=== PATIENT | male | born 1965 | race Caucasian/White ===

== ENCOUNTER 2017-12-04 16:47 | Emergency (ER) | payer BC ==
[2017-12-04] MEDS ORDERED: methylPREDNISolone SOD SUCC 125 MG/2 ML VIAL IVP ONE (17:02)
--- NOTE | 2017-12-04 17:04 | EDPHY ---
H & P Stated Complaint: burning in lungs /long flight friday/hx sarcoidosis Time Seen by Provider: 12/04/17 16:56 HPI/ROS: CHIEF COMPLAINT: Burning sensation in lungs HISTORY OF PRESENT ILLNESS: Patient is a 52-year-old man with a history of sarcoidosis who comes to the emergency department complaining of burning in his lungs and pain with deep inspiration. He states that this is similar to previous sarcoid flares in which case his steroid doses were increased for a few days. He is currently on 20 mg of prednisone daily. He has had the symptoms for about 3 days. He returned home from after [facility] 5 days ago. He presented to his primary today who was concerned about PE and sent him to the ER for evaluation. Patient denies leg pain or swelling. He does not smoke. No cardiac history. REVIEW OF SYSTEMS: Constitutional: denies: chills, fever, recent illness, recent injury EENTM: denies: blurred vision, double vision, nose congestion Respiratory: See HPI Cardiac: denies: chest pain, irregular heart rate, lightheadedness, palpitations Gastrointestinal/Abdominal: denies: abdominal pain, diarrhea, nausea, vomiting, blood streaked stools Genitourinary: denies: dysuria, frequency, hematuria, pain Musculoskeletal: denies: joint pain, muscle pain Skin: denies: lesions, rash, jaundice, bruising Neurological: denies: headache, numbness, paresthesia, tingling, dizziness, weakness Hematologic/Lymphatic: denies: blood clots, easy bleeding, easy bruising Immunologic/allergic: denies: HIV/AIDS, transplant EXAM: GENERAL: Well-appearing, well-nourished and in no acute distress. HEAD: Atraumatic, normocephalic. EYES: Pupils equal round and reactive to light, extraocular movements intact, sclera anicteric, conjunctiva are normal. ENT: TMs normal, nares patent, oropharynx clear without exudates. Moist mucous membranes. NECK: Normal range of motion, supple without lymphadenopathy or JVD. LUNGS: Breath sounds clear to auscultation bilaterally and equal. No wheezes rales or rhonchi. HEART: Regular rate and rhythm without murmurs, rubs or gallops. ABDOMEN: Soft, nontender, normoactive bowel sounds. No guarding, no rebound. No masses appreciated. BACK: No CVA tenderness, no spinal tenderness, step-offs or deformities EXTREMITIES: Normal range of motion, no pitting or edema. No clubbing or cyanosis. NEUROLOGICAL: Cranial nerves II through XII grossly intact. Normal speech, normal gait. 5/5 strength, normal movement in all extremities, normal sensation PSYCH: Normal mood, normal affect. SKIN: Warm, dry, normal turgor, no visible rashes or lesions. Source: Patient Exam Limitations: No limitations - Personal History Current Tetanus/Diphtheria Vaccine: Yes - Medical/Surgical History Hx Asthma: No Hx Chronic Respiratory Disease: Yes Hx Diabetes: No Hx Cardiac Disease: No Hx Renal Disease: No Hx Cirrhosis: No Hx Alcoholism: No Hx HIV/AIDS: No Hx Splenectomy or Spleen Trauma: No Other PMH: sarcoidosis - Family History Significant Family History: No pertinent family hx - Social History Smoking Status: Never smoked Alcohol Use: Sober Drug Use: None Constitutional: Initial Vital Signs Temperature (C) 36.5 C 12/04/17 16:52 Heart Rate 102 H 12/04/17 16:52 Respiratory Rate 20 12/04/17 16:52 Blood Pressure 119/93 H 12/04/17 16:52 O2 Sat (%) 96 12/04/17 16:52 O2 Delivery Mode Room Air Allergies/Adverse Reactions: sulfamethoxazole [From Bactrim] Allergy (Verified 12/04/17 16:51) trimethoprim [From Bactrim] Allergy (Verified 12/04/17 16:51) Home Medications: Medication Instructions Recorded Prednisone 12/04/17 predniSONE [Prednisone] 10 mg PO DAILY #14 tablet 12/04/17 Medical Decision Making - Diagnostics EKG Interpretation: An EKG obtained and was read and documented in trace view. Please see trace view for full reading and report. Sinus rhythm, no acute ischemic changes is T- wave inversion in lead 3. ED Course/Re-evaluation: Patient's D-dimer is negative. He is very relieved. He has received Solu- Medrol. We discussed is treating his steroids from 20 a day to 40 a day and then tapering. I will write him a prescription for several 10 mg prednisone and have him taper as discussed. He is happy with this plan and declines further workup or testing at this time. Differential Diagnosis: Partial list of the Differential diagnosis considered include but were not limited to; sarcoidosis exacerbation, asthma, PE and although unlikely based on the history and physical exam, I also considered arrhythmia, dissection, aneurysm. I discussed these differential diagnoses and the plan with the patient as well as the usual and expected course. The patient understands that the diagnosis is provisional and that in medicine we are not always correct and that further workup is often warranted. Usual and customary warnings were given. All of the patient's questions were answered. The patient was instructed to return to the emergency department should the symptoms at all worsen or return, otherwise to followup with the physician as we discussed. - Data Points Laboratory Results: Laboratory Results 12/04/17 17:04 12/04/17 17:04 12/04/17 12/04/17 12/04/17 17:04 17:04 17:04 WBC 6.62 10^3/uL 10^3/uL (3.80-9.50) RBC 5.35 10^6/uL 10^6/uL (4.40-6.38) Hgb 16.7 g/dL g/dL (13.7-17.5) Hct 48.4 % % (40.0-51.0) MCV 90.5 fL fL (81.5-99.8) MCH 31.2 pg pg (27.9-34.1) MCHC 34.5 g/dL g/dL (32.4-36.7) RDW 14.0 % % (11.5-15.2) Plt Count 234 10^3/uL 10^3/uL (150-400) MPV 10.7 fL fL (8.7-11.7) Neut % (Auto) 77.1 % H % (39.3-74.2) Lymph % (Auto) 13.4 % L % (15.0-45.0) Page % (Auto) 7.7 % % (4.5-13.0) Eos % (Auto) 0.2 % L % (0.6-7.6) Baso % (Auto) 0.5 % % (0.3-1.7) Nucleat RBC Rel Count 0.0 % % (0.0-0.2) Absolute Neuts (auto) 5.11 10^3/uL 10^3/uL (1.70-6.50) Absolute Lymphs (auto) 0.89 10^3/uL L 10^3/uL (1.00-3.00) Absolute Monos (auto) 0.51 10^3/uL 10^3/uL (0.30-0.80) Absolute Eos (auto) 0.01 10^3/uL L 10^3/uL (0.03-0.40) Absolute Basos (auto) 0.03 10^3/uL 10^3/uL (0.02-0.10) Absolute Nucleated RBC 0.00 10^3/uL 10^3/uL (0-0.01) Immature Gran % 1.1 % % (0.0-1.1) Immature Gran # 0.07 10^3/uL 10^3/uL (0.00-0.10) PT 13.7 SEC SEC (12.0-15.0) INR 1.03 (0.83-1.16) APTT 25.1 SEC SEC (23.0-38.0) D-Dimer < 0.27 ug/mLFEU ug/mLFEU (0.00-0.50) Sodium 141 mEq/L mEq/L (135-145) Potassium 4.5 mEq/L mEq/L (3.5-5.2) Chloride 102 mEq/L mEq/L (97-110) Carbon Dioxide 27 mEq/l mEq/l (22-31) Anion Gap 12 mEq/L mEq/L (8-16) BUN 23 mg/dL mg/dL (7-23) Creatinine 0.9 mg/dL mg/dL (0.7-1.3) Estimated GFR > 60 Glucose 116 mg/dL H mg/dL (70-100) Calcium 9.6 mg/dL mg/dL (8.5-10.4) Medications Given: Discontinued Medications Methylprednisolone Sodium Succinate (Solu-Medrol) 125 mg IVP EDNOW ONE Stop: 12/04/17 17:03 Last Admin: 12/04/17 17:18 Dose: 125 mg Departure - Departure Disposition: Home, Routine, Self-Care Clinical Impression: Sarcoidosis of lung Condition: Fair Instructions: Sarcoidosis (ED) Referrals: Jame Shirley DO [Primary Care Provider] - As per Instructions Prescriptions: predniSONE [Prednisone] 10 mg PO DAILY #14 tablet
--- NOTE | 2017-12-04 17:12 | CPEKG ---
Heart Rate: 94 RR Interval: 638 P-R Interval: 140 QRSD Interval: 88 QT Interval: 340 QTC Interval: 426 P [place]: 38 QRS [place]: 16 T Wave [place]: 6 EKG Severity - NORMAL ECG - EKG Impression: SINUS RHYTHM Electronically Signed By: Henri Naylor 04-Dec-2017 17:17:20
[2017-12-04 17:19] LABS: PLATELET COUNT 234 10^3/uL (150-400)
[2017-12-04 17:30] LABS: INR 1.03 (0.83-1.16); PROTIME(PATIENT) 13.7 SEC (12.0-15.0)
[2017-12-04 17:47] VITALS: BP 112/81
== END 2017-12-04 17:45 | disposition home or self-care (01) ==
DX: D86.0 Sarcoidosis of lung (principal)
CPT/HCPCS: 96374; J2930